=== PATIENT | female | born 1990 | race Caucasian/White ===

== ENCOUNTER 2023-06-12 07:30 | Outpatient (RCR) | payer OTHER, SELFPAY | END 2023-10-10 23:59 | disposition home or self-care (01) | PROVIDERS: Visit Provider Advanced Practice Midwife | DX: M62.89 Other specified disorders of muscle (principal); R10.30 Lower abdominal pain, unspecified; M25.551 Pain in right hip; N39.3 Stress incontinence (female) (male); Z51.89 Encounter for other specified aftercare | CPT/HCPCS: 97110; 97112; 97161; 97535 ==